=== PATIENT | male | born 1945 | race Caucasian/White ===

== ENCOUNTER 2016-05-26 07:48 | Day surgery (SDC) | payer OTHER, MEDICARE ==
[2016-05-24 11:36] LABS: HEMATOCRIT 38.9 % (40.0-51.0); HEMOGLOBIN 12.8 g/dL (13.6-17.8)
[2016-05-24 11:42] LABS: BUN (BLOOD UREA NITROGEN) 18 MG/DL (6-23); CALCIUM, SERUM 8.6 MG/DL (8.5-10.4); CHLORIDE, SERUM 104 MMOL/L (96-112); CO2 (CARBON DIOXIDE) 28 MMOL/L (24-34); CREATININE 0.91 MG/DL (0.70-1.30); GFR AFRICAN AMERICAN 99 ML/MIN (>=60); GFR NON AFRICAN AMERICAN 86 ML/MIN (>=60); GLUCOSE, SERUM 97 MG/DL (60-99); POTASSIUM, SERUM 4.1 MMOL/L (3.5-5.3); SODIUM, SERUM 140 MMOL/L (135-148)
[~2016-05-26 07:48] MED LIST: LIPITOR80 MG PO; PRINZIDE PO
== END 2016-05-26 16:20 | disposition home or self-care (01) ==
LOC: SDC 07:48
PROVIDERS: Ophthalmology
PROC: 08Q8XZZ Repair Right Cornea, External Approach (ICD-10-PCS; 2016-05-26)
PROC: 08Q9XZZ Repair Left Cornea, External Approach (ICD-10-PCS; principal; 2016-05-26 11:15)
DX: H18.51 Endothelial corneal dystrophy (principal); I10 Essential (primary) hypertension; E78.5 Hyperlipidemia, unspecified; E78.00 Pure hypercholesterolemia, unspecified
CPT/HCPCS: 80048; 85014; 85018; 87070; 87102; 87205; 93005; J0690; J2250; J2405; J3010; V2785

== ENCOUNTER 2016-06-09 06:06 | Day surgery (SDC) | payer OTHER, MEDICARE ==
[2016-06-09 08:36] LABS: HEMATOCRIT 41.8 % (40.0-51.0); HEMOGLOBIN 13.8 g/dL (13.6-17.8)
[2016-06-09 08:42] LABS: CHLORIDE, SERUM 100 MMOL/L (96-112); CO2 (CARBON DIOXIDE) 31 MMOL/L (24-34); CREATININE 1.05 MG/DL (0.70-1.30); GFR AFRICAN AMERICAN 84 ML/MIN (>=60); GFR NON AFRICAN AMERICAN 72 ML/MIN (>=60); GLUCOSE, SERUM 107 MG/DL (60-99); POTASSIUM, SERUM 4.1 MMOL/L (3.5-5.3); SODIUM, SERUM 138 MMOL/L (135-148)
[2016-06-09 08:44] LABS: BUN (BLOOD UREA NITROGEN) 10 MG/DL (6-23)
== END 2016-06-09 11:44 | disposition home or self-care (01) ==
LOC: SDC 06:06
PROVIDERS: Anesthesiology; Ophthalmology
PROC: 08Q9XZZ Repair Left Cornea, External Approach (ICD-10-PCS; principal; 2016-06-09 08:45)
DX: H18.51 Endothelial corneal dystrophy (principal); I10 Essential (primary) hypertension; Z98.890 Other specified postprocedural states; H26.9 Unspecified cataract; E78.00 Pure hypercholesterolemia, unspecified; Z79.899 Other long term (current) drug therapy
CPT/HCPCS: 80048; 85014; 85018; 87070; 87102; 87205; J0690; J2405; V2785